=== PATIENT | female | born 1960 | race Caucasian/White ===

== ENCOUNTER 2016-05-08 20:40 | Emergency (ER) | payer OTHER ==
[2016-05-08] MEDS ORDERED: LABETALOL IV ONE ×2 (21:17→22:27)
[2016-05-08] MEDS ORDERED: MORPHINE IV ONE (21:17)
[2016-05-08] MEDS ORDERED: ZOFRAN IV ONE (21:17)
--- NOTE | 2016-05-08 21:27 | PROVIDER DOCUMENTATION ---
HPI-Abdominal Pain/GI Problem <Mirta Yarbrough - Last Filed: 05/08/16 22:24> - General Source: patient - History of Present Illness-ABD Nature of Presenting Problems: Pt is a 56 yof who presents to ER with CC of N/V since 129 today. Pt reports that she is now experiencing generalized abdominal pain that radiates to her back, and pt reports that she thinks that it is from vomiting so much. Pt reports one emesis being green in color and denies ingesting anything green. Pt also reports subjective fever/chills. Abdominal Pain Onset Location: reports: generalized abdomen Pain Radiation: reports: back Quality of Pain: reports: aching Severity in ED: reports: moderate Onset/Duration: reports: this morning (129) Timing: reports: still present, intermittent Activities at Onset: reports: rest Associated Symptoms: reports: anxiety, back/neck pain, cough, fever/chills, loss of appetite, nausea, vomiting. denies: arm pain, chest pain, diarrhea, fatigue, genitourinary problems, headaches, heartburn, joint pain, muscle aches , rash, seizure, shortness of breath, pain with inspiration, syncope, weakness, trouble walking Last BM: unsure Dark Stools Present?: reports: none noticed Rectal Bleeding: reports: none Rectal Pain: reports: none Emesis Description: reports: other (green) <Matthew Hawkins - Last Filed: 05/08/16 23:14> - General Chief Complaint: Nausea/Vomiting Stated Complaint: HIGH BP Time Seen by Provider: 05/08/16 21:05 Allergies/Adverse Reactions: Patient Allergies Allergy/AdvReac Type Severity Reaction Status Date / Time codeine Allergy RASH Verified 05/08/16 21:01 meperidine HCl * Allergy RASH Verified 05/08/16 21:01 [From Demerol] Penicillins Allergy ANAPHYLAXIS Verified 05/08/16 21:01 Home Medications: Home Medication List Medication Instructions Recorded Confirmed Last Taken Type Biotin 5 mg PO DAILY 03/19/14 05/08/16 10/06/15 10:00 History Diazepam 5 mg PO BID 03/19/14 05/08/16 10/06/15 10:00 History Losartan Potassium 50 mg PO DAILY 03/19/14 05/08/16 10/06/15 10:00 History Trazodone [Desyrel] 50 mg PO QHS 11/15/14 05/08/16 10/05/15 History [facility]-3 Fatty Acids [Fish Oil 1,000 mg PO DAILY #0 capsule 11/19/14 05/08/16 10:00 Rx Concentrate] Omeprazole [Prilosec] 40 mg PO DAILY #0 11/19/14 05/08/16 08/24/15 Rx Aspirin [Ecotrin] 81 mg PO DAILY 10/06/15 05/08/16 10/06/15 10:00 History Fluconazole [Diflucan] 150 mg PO DAILY #1 tablet 10/06/15 05/08/16 Unknown Rx Lovastatin 20 mg PO QHS 10/06/15 05/08/16 10/05/15 History Venlafaxine HCl [Venlafaxine HCl 150 mg PO DAILY 10/06/15 05/08/16 10/06/15 10: 00 History ER] Ondansetron Odt [Zofran 8Mg Odt] 8 mg PO Q8H PRN PRN #20 tablet 05/08/16 Unknown Rx Review of Systems - Adult - REVIEW OF SYSTEMS - ADULT Constitutional: reports: chills, fever. denies: fatique, night sweats Eyes: reports: no symptoms reported Ears, Nose, Mouth & Throat: reports: no symptoms reported Cardiovascular: denies: chest pain, edema, heart murmur, irregular heart rate, orthopnea, palpitations, poor circulation, PND, syncope Respiratory: reports: cough, wheezing. denies: chronic cough, dyspnea on exertion, excessive sputum production, hemoptysis, pleurisy, shortness of breath Gastrointestinal: reports: abdominal pain, nausea, poor appetite, vomiting. denies: hematemesis, constipation, diarrhea, difficulty swallowing, frequent heartburn, rectal bleeding Genitourinary: reports: no symptoms reported Musculoskeletal: reports: no symptoms reported Integumentary: reports: no symptoms reported Neurological: reports: no symptoms reported Psychiatric: reports: no symptoms reported Endocrine: reports: no symptoms reported Hematologic/Lymphatic: reports: no symptoms reported Allergic/Immunologic: reports: no symptoms reported All Other Systems: Reviewed and Negative <Matthew Hawkins - Last Filed: 05/08/16 23:14> Past History - Adult - PAST MEDICAL HISTORY-ADULT Review of Records: reports: Nursing Assessment Review, Medications Reviewed Cardiovascular: reports: HTN, hyperlipidemia Musculoskeletal: reports: arthritis, chronic pain (back) Psychiatric: reports: anxiety, depression Other Conditions: reports: other (histoplasmosis) - PRIOR SURGERIES/PROCEDURES Surgical/Procedure History: reports: hysterectomy, orthopedic (extremity) (L foot ) - IMMUNIZATION STATUS Childhood Immunizations: See Nurse Assessment Flu Vaccine: See Nurse Assessment - FAMILY HISTORY Family History: CAD under 55yo <Matthew Hawkins - Last Filed: 05/08/16 23:14> Physical Exam-General - PHYSICAL EXAM-ADULT Initial Vital Signs Reviewed: Yes - CONSTITUTIONAL General Appearance: appears well, alert, no apparent distress, lethargic. negative: mild distress, moderate distress, severe distress, obese, thin, anxious, slow to respond, obtunded, combative - RESPIRATORY Respiratory: chest non-tender, lungs clear, normal breath sounds. negative: respiratory distress, decreased breath sounds, accessory muscle use, wheezing - CARDIOVASCULAR Cardiovascular: normal peripheral pulses, regular rate, rhythm, other (HTN (188/ 101)). negative: bradycardia, tachycardia - GASTROINTESTINAL (ABDOMEN) Abdominal Exam: normal bowel sounds, soft, tenderness (generalized). negative: non tender, abnormal bowel sounds, distended, guarding, mass - SKIN Integumentary: normal color, normal turgor, warm/dry - NEUROLOGIC Neurologic: grossly normal, no motor/sensory deficits. negative: facial droop, focal weakness, motor weakness, sensory deficit - PSYCHIATRIC Psych/Mental Status: normal mood/affect, normal thought content, normal thought process, oriented x 3 <Matthew Hawkins - Last Filed: 05/08/16 23:14> Progress - PLAN OF CARE/RESULTS Progress/Plan/Lab Results: Vital Signs Temp Pulse Resp BP Pulse Ox 05/08/16 20:48 98.4 F 84 14 180/100 98 codeine Allergy (Verified 05/08/16 21:01) RASH meperidine HCl * [From Demerol] Allergy (Verified 05/08/16 21:01) RASH Penicillins Allergy (Verified 05/08/16 21:01) ANAPHYLAXIS Biotin 5 mg PO DAILY 03/19/14 Diazepam 5 mg PO BID 03/19/14 Losartan Potassium 50 mg PO DAILY 03/19/14 Trazodone [Desyrel] 50 mg PO QHS 11/15/14 [facility]-3 Fatty Acids [Fish Oil Concentrate] 1,000 mg PO DAILY #0 capsule Omeprazole [Prilosec] 40 mg PO DAILY #0 11/19/14 Aspirin [Ecotrin] 81 mg PO DAILY 10/06/15 Fluconazole [Diflucan] 150 mg PO DAILY #1 tablet 10/06/15 Lovastatin 20 mg PO QHS 10/06/15 Venlafaxine HCl [Venlafaxine HCl ER] 150 mg PO DAILY 10/06/15 Dietary Diet NPO Start SunMay 08 2107 I&O 05/07/16 05/08/16 05/09/16 06:59 06:59 06:59 Output Total 20 Balance -20 Laboratory 05/08/16 05/08/16 05/08/16 21:43 21:43 21:43 WBC 10.76 RBC 5.10 Hgb 15.0 Hct 43.4 MCV 85.1 MCH 29.4 MCHC 34.6 RDW Std Deviation 12.7 Plt Count 262 MPV 9.4 Immature Gran % (Auto) 0.2 Neut % (Auto) 75.0 Lymph % (Auto) 17.7 L [place] % (Auto) 6.8 Eos % (Auto) 0.2 Baso % (Auto) 0.1 Immature Gran # (Auto) 0.02 Neut # (Auto) 8.08 H Lymph # (Auto) 1.90 [place] # (Auto) 0.73 H Eos # (Auto) 0.02 Baso # (Auto) 0.01 Sodium 140 Potassium 3.6 Chloride 97 L Carbon Dioxide 25 Anion Gap 18 BUN 12 Creatinine 0.9 Estimated GFR/1.73 m2 > 60 BUN/Creatinine Ratio 13 Glucose 148 H Calculated Osmolality 282 Calcium 10.0 Total Bilirubin 0.21 AST 26 ALT 56 H Alkaline Phosphatase 127 H Total Protein 7.1 Albumin 4.4 Globulin 2.7 Albumin/Globulin Ratio 1.6 Amylase 180 Lipase 178 H Urine Source CLEAN CATCH Urine Color YELLOW Urine Turbidity HAZY Urine pH 7.5 Ur Specific [place] 1.021 Urine Protein 50 A Ur Glucose (Stick) NEGATIVE Ur Ketones (Stick) NEGATIVE Urine Blood MODERATE A Urine Nitrite NEGATIVE Urine Bilirubin NEGATIVE Urobilinogen Dipstick NORMAL Urine Leukocytes NEGATIVE Urine WBC (Auto) <10 Urine RBC (Auto) TNTC A U Epithel Cells (Auto) <10 Urine Bacteria (Auto) NEGATIVE Orders Category Date Time Status Saline Loc DIRECTED Care 05/08/16 21:08 Active NPO Diet 05/08/16 21:08 Active AMYLASE [CHEM] Stat Lab 05/08/16 21:43 Completed CBC WITH ELECTRONIC DIFF [HEME] Stat Lab 05/08/16 21:43 Completed COMPREHENSIVE METABOLIC PANEL [CHEM] Stat Lab 05/08/16 21:43 Completed LIPASE [CHEM] Stat Lab 05/08/16 21:43 Completed URINALYSIS W/POSS RFLX CULT [URINALYSIS] Stat Lab 05/08/16 21:43 Completed 0.9% Sodium Chloride Inj [Ns] 1,000 ml Med 05/08/16 22:24 Active IV 999 mls/hr Labetalol Med 05/08/16 21:17 Discontinued 10 mg IV NOW ONE Morphine Med 05/08/16 21:17 Discontinued 2 mg IV NOW ONE Ondansetron [Zofran] Med 05/08/16 21:17 Discontinued 4 mg IV NOW ONE <Mirta Yarbrough - Last Filed: 05/08/16 22:24> - PLAN OF CARE/RESULTS Progress/Plan/Lab Results: Vital Signs - 24 hr 05/08/16 20:48 Temperature 98.4 F Pulse Rate 84 Respiratory 14 Rate Blood Pressure 180/100 O2 Sat by Pulse 98 Oximetry Orders Category Date Time Status Saline Loc DIRECTED Care 05/08/16 21:08 Active NPO Diet 05/08/16 21:08 Active AMYLASE [CHEM] Stat Lab 05/08/16 21:43 Completed CBC WITH ELECTRONIC DIFF [HEME] Stat Lab 05/08/16 21:43 Completed COMPREHENSIVE METABOLIC PANEL [CHEM] Stat Lab 05/08/16 21:43 Completed LIPASE [CHEM] Stat Lab 05/08/16 21:43 Completed URINALYSIS W/POSS RFLX CULT [URINALYSIS] Stat Lab 05/08/16 21:43 Completed 0.9% Sodium Chloride Inj [Ns] 1,000 ml Med 05/08/16 22:24 Active IV 999 mls/hr Labetalol Med 05/08/16 21:17 Discontinued 10 mg IV NOW ONE Labetalol Med 05/08/16 22:27 Discontinued 10 mg IV NOW ONE Morphine Med 05/08/16 21:17 Discontinued 2 mg IV NOW ONE Ondansetron [Zofran] Med 05/08/16 21:17 Discontinued 4 mg IV NOW ONE Laboratory Tests 05/08/16 05/08/16 05/08/16 21:43 21:43 21:43 WBC 10.76 RBC 5.10 Hgb 15.0 Hct 43.4 MCV 85.1 MCH 29.4 MCHC 34.6 RDW Std Deviation 12.7 Plt Count 262 MPV 9.4 Immature Gran % (Auto) 0.2 Neut % (Auto) 75.0 Lymph % (Auto) 17.7 L [place] % (Auto) 6.8 Eos % (Auto) 0.2 Baso % (Auto) 0.1 Immature Gran # (Auto) 0.02 Neut # (Auto) 8.08 H Lymph # (Auto) 1.90 [place] # (Auto) 0.73 H Eos # (Auto) 0.02 Baso # (Auto) 0.01 Sodium 140 Potassium 3.6 Chloride 97 L Carbon Dioxide 25 Anion Gap 18 BUN 12 Creatinine 0.9 Estimated GFR/1.73 m2 > 60 BUN/Creatinine Ratio 13 Glucose 148 H Calculated Osmolality 282 Calcium 10.0 Total Bilirubin 0.21 AST 26 ALT 56 H Alkaline Phosphatase 127 H Total Protein 7.1 Albumin 4.4 Globulin 2.7 Albumin/Globulin Ratio 1.6 Amylase 180 Lipase 178 H Urine Source CLEAN CATCH Urine Color YELLOW Urine Turbidity HAZY Urine pH 7.5 Ur Specific [place] 1.021 Urine Protein 50 A Ur Glucose (Stick) NEGATIVE Ur Ketones (Stick) NEGATIVE Urine Blood MODERATE A Urine Nitrite NEGATIVE Urine Bilirubin NEGATIVE Urobilinogen Dipstick NORMAL Urine Leukocytes NEGATIVE Urine WBC (Auto) <10 Urine RBC (Auto) TNTC A U Epithel Cells (Auto) <10 Urine Bacteria (Auto) NEGATIVE <Matthew Hawkins - Last Filed: 05/08/16 23:14> Departure - Departure Time of Disposition Order: 22:26 Certified Medical Emergency: Emergent <Mirta Yarbrough - Last Filed: 05/08/16 22:24> - Departure Time of Disposition Order: 23:14 Certified Medical Emergency: Emergent <Matthew Hawkins - Last Filed: 05/08/16 23:14> - Departure DIAGNOSIS: Pancreatitis Qualifiers: Chronicity: acute Pancreatitis type: unspecified pancreatitis type Acute pancreatitis complication: no infection or necrosis Qualified Code(s): K85.90 - Acute pancreatitis without necrosis or infection, unspecified HTN (hypertension) Qualifiers: Hypertension type: essential hypertension Qualified Code(s): I10 - Essential ( primary) hypertension Disposition: HOME 01 Condition: Stable Additional Instructions: Clear liquid diet for the next week. No fatty foods Follow up with a GI physician ED Follow Up Instructions: You have been treated by a care provider in the Emergency Department. These instructions are being provided to you so you can have an understanding of how to care for yourself upon discharge. Upon discharge from the Emergency Department, you are responsible for making arrangements for follow-up care by a physician of your choice. Take all prescribed medications as directed. Return to the Emergency Department immediately for any new or worsening symptoms. You may call the Physician Referral phone number at [phone] to obtain a list of Physicians who are taking new patients. Prescriptions: Ondansetron Odt [Zofran 8Mg Odt] 8 mg PO Q8H PRN PRN #20 tablet PRN Reason: Nausea Referrals: Jesús Forde MD [Primary Care Provider] - Aurelio Palumbo MD [STAFF PHYSICIAN] - Instructions: Hypertension, [id number], Acute Pancreatitis Attestation - Physician/ TAHIRA Attestation Patient care was provided by Advanced Practice Provider:: Yes Advanced Practice Provider:: Mirta Yarbrough Advanced Practice Provider documentation review:: The Mid-level provider documentation, treatment plan and medical decision making was reviewed by the physician who agrees with all treatment and medical decision making by the P. <Mirta Yarbrough - Last Filed: 05/08/16 22:24> - Scribe Verification/Attestation Scribe:: Matthew Hawkins Acting as Scribe for:: Mirta Yarbrough Scribe documention review:: This chart was documented by a scribe and accurately reflects the service the provider performed and the decisions made by the provider. <Matthew Hawkins - Last Filed: 05/08/16 23:14> Physician Attestation
[2016-05-08 21:53] LABS: MANUAL DIFF NEEDED? NO; URINE CULTURE NEEDED? NO; URINE MICRO REVIEW NEEDED? NO; URINE SOURCE CLEAN CATCH
[2016-05-08 21:56] LABS: BASO% 0.1 % (0.0-0.8); EOS# 0.02 X1000 (0.0-0.7); EOS% 0.2 % (0.0-10.0); HEMATOCRIT 43.4 % (37.0-47.0); IMM GRAN# 0.02 X1000 (0.0-0.04); IMM GRAN% 0.2 % (0.0-0.5); LYMPH% 17.7 % (20.5-51.1); MCH 29.4 PG (27-31); MCHC 34.6 g/dL (33-37); MCV 85.1 FL (81-99); MONO# 0.73 X1000 (0.11-0.59); MONO% 6.8 % (1.7-9.3); MPV 9.4 FL (7.4-10.4); PLT 262 X1000 (130-400)
[2016-05-08 22:20] LABS: BILIRUBIN URINE NEGATIVE (NEGATIVE); BLOOD URINE MODERATE (NEGATIVE); COLOR YELLOW; GLUCOSE URINE NEGATIVE (NEGATIVE); LEUKOCYTES URINE NEGATIVE (NEGATIVE); NITRITE URINE NEGATIVE (NEGATIVE); PH URINE 7.5; PROTEIN URINE 50 mg/dL (NEGATIVE); SP GRAVITY URINE 1.021; TURBIDITY URINE HAZY (CLEAR); UROBILINOGEN URINE NORMAL (NORMAL)
[2016-05-08 22:21] LABS: AGAP 18; ALBUMIN 4.4 g/dL (3.5-5.0); ALKALINE PHOSPHATASE 127 U/L (32-104); AMYLASE 180 U/L (20-200); BUN 12 mg/dL (8-22); CHLORIDE 97 mmol/L (98-107); COSMO 282; GOT 26 U/L (10-30); GPT 56 U/L (10-36); LIPASE 178 U/L (13-60); POTASSIUM 3.6 mmol/L (3.5-5.1); SODIUM 140 mmol/L (136-145); TCO2 25 mmol/L (25-35); TOTAL BILIRUBIN 0.21 mg/dL (0.20-1.00); TOTAL PROTEIN 7.1 g/dL (6.3-8.3)
[2016-05-08 22:22] LABS: UR EPITHELIAL CELLS <10 /HPF (<10); URINE BACTERIA NEGATIVE /HPF; URINE RBC TNTC /HPF (<10); URINE WBC <10 /HPF (<10)
[2016-05-08] MEDS ORDERED: NS 1,000 ML IV ONE (22:24)
[2016-05-09 00:05] VITALS: BP 177/115
== END 2016-05-09 00:39 | disposition home or self-care (01) ==
LOC: ED 20:40
DX: K85.90 Acute pancreatitis without necrosis or infection, unspecified (principal); I10 Essential (primary) hypertension; R11.2 Nausea with vomiting, unspecified; R10.84 Generalized abdominal pain; M54.9 Dorsalgia, unspecified; R05 Cough; R50.9 Fever, unspecified; R06.2 Wheezing; Z79.899 Other long term (current) drug therapy; R53.83 Other fatigue; R10.817 Generalized abdominal tenderness; E78.5 Hyperlipidemia, unspecified; M19.90 Unspecified osteoarthritis, unspecified site; G89.29 Other chronic pain; F41.9 Anxiety disorder, unspecified; F32.9 Major depressive disorder, single episode, unspecified; Z79.82 Long term (current) use of aspirin
CPT/HCPCS: 80053; 81001; 82150; 83690; 85025; J2405; J7030

== ENCOUNTER 2019-05-14 15:50 | Inpatient (IN) ==
[2019-05-14 16:35] LABS: BASO# 0.01 X1000 (0.0-0.2); BASO% 0.1 % (0.0-0.8); EOS# 0.18 X1000 (0.0-0.7); EOS% 2.5 % (0.0-10.0); HEMATOCRIT 41.5 % (37.0-47.0); HEMOGLOBIN 13.2 g/dL (12.0-16.0); IMM GRAN# 0.02 X1000 (0.0-0.04); IMM GRAN% 0.3 % (0.0-0.5); LYMPH# 3.17 X1000 (1.2-3.4); LYMPH% 44.6 % (20.5-51.1); MCHC 31.8 g/dL (33-37); MCV 84.9 FL (81-99); MONO# 0.49 X1000 (0.11-0.59); MONO% 6.9 % (1.7-9.3); MPV 10.3 FL (7.4-10.4); NEUT# 3.24 X1000 (1.4-6.5); NEUT% 45.6 % (42.2-75.2); PLT 179 X1000 (130-400); RBC 4.89 XMIL (4.2-5.4); RDW 13.4 % (11.5-14.5); WBC 7.11 X1000 (4.8-10.8)
[2019-05-14 16:51] LABS: INR 0.86; PROTIME 12.1 Seconds (11.0-16.0)
[2019-05-14 16:55] LABS: PTT < 20.0 Seconds (22.3-41.8)
[2019-05-14 16:58] LABS: AGAP 14; ALBUMIN 4.6 g/dL (3.5-5.0); ALKALINE PHOSPHATASE 121 U/L (32-104); BUN 16 mg/dL (8-22); CALCIUM 9.4 mg/dL (8.8-10.2); CHLORIDE 104 mmol/L (98-107); COSMO 288; CREATININE 0.8 mg/dL (0.5-0.9); ESTIMATED GFR > 60; GLUCOSE 100 mg/dL (70-104); GOT 29 U/L (10-30); GPT 39 U/L (10-36); POTASSIUM 3.9 mmol/L (3.5-5.1); SODIUM 144 mmol/L (136-145); TCO2 26 mmol/L (25-35); TOTAL PROTEIN 6.9 g/dL (6.3-8.3)
--- NOTE | 2019-05-14 17:09 | Diag Imaging Result Doc PS360 ---
EXAM: CT HEAD W/O CONTRAST HISTORY: stroke like symptoms TECHNIQUE: Images were obtained from the skull base to vertex without IV contrast as per standard protocol. This exam was performed using automated exposure control, adjustment of mA or kV according to patient size, and/or use of iterative reconstruction technique. COMPARISON: 08/26/2015 FINDINGS: Mild cerebral atrophy. No acute hemorrhage. No midline shift or mass effect. Stable posterior fossa arachnoid cyst versus negative cisterna magna. Mild microvascular disease. Paranasal sinuses and mastoid air cells are clear. IMPRESSION: Stable exam. No acute intracranial abnormality is appreciated. Electronically signed by Joan Kamara 05/14/2019 5:06 PM
--- NOTE | 2019-05-14 17:23 | Diag Imaging Result Doc PS360 ---
EXAM: CHEST-PORTABLE INDICATION: stroke like symptoms TECHNIQUE: One view COMPARISON: 10/29/2018 FINDINGS: There is evidence of prior granulomatous disease, stable. The lungs are grossly clear. There is no discrete pleural fluid collection or pneumothorax. The cardiomediastinal silhouette and central vasculature are grossly unremarkable. IMPRESSION: No evidence of acute pathology by plain radiograph. Electronically signed by Alex Dukes 05/14/2019 5:21 PM
[2019-05-14] MEDS ORDERED: APRESOLINE IV ONE ×2 (17:36→18:33)
[2019-05-14] MEDS ORDERED: ASPIRIN PO ONE (17:37)
--- NOTE | 2019-05-14 17:40 | PROVIDER DOCUMENTATION ---
This chart was entered by Rohini Roque Scribe, acting as scribe for Luis Saldana MD. HPI-Neurological Disorder - General Chief Complaint: Altered Mental Status Stated Complaint: AMS Time Seen by Provider: 05/14/19 15:59 Source: patient Allergies/Adverse Reactions: Patient Allergies Allergy/AdvReac Type Severity Reaction Status Date / Time codeine Allergy RASH Verified 10/17/18 15:57 meperidine HCl * Allergy RASH Verified 10/17/18 15:57 [From Demerol] Penicillins Allergy ANAPHYLAXIS Verified 10/17/18 15:57 Home Medications: Home Medication List Medication Instructions Recorded Confirmed Last Taken Type Unobtainable [Home Meds 05/14/19 05/14/19 Unknown History Unobtainable] - History of Present Illness-Neuro Nature of Presenting Problem: 59 yowf presents to the ed via pov and was found walking around in the ed. when a nurse approach the pt she was having difficulty with her speech and was confused. pt on exam has improved and still having brief episodes of aphasia but has no other sx. pt denies any pain or injury. pt sts she drove herself to the ed because her mother was worried she was having a stroke. pt has hx of HTN. pt sts onset of sx was approximately 1100. pt sts sometime after breakfast and before lunch. pt sts she had slurring of speech this am but that has improved Headache Location: reports: frontal Severity: reports: moderate Onset/Duration: reports: this morning Timing: reports: still present, constant Context: reports: impaired speech Character of Altered Mental Status: reports: confused Any recent trauma/injury?: reports: none Character of Deficits: reports: impaired speech New weakness or altered sensation location:: reports: none Cognitive Baseline: alert, oriented x3 Gait Baseline: walks without assistance Associated Symptoms: reports: headache, confusion, slurred speech. denies: dizziness, chest pain, fever/chills, seizures, vision changes Similar Symptoms Previously?: No Recently seen or treated by another doctor?: No Review of Systems - Adult - REVIEW OF SYSTEMS - ADULT Constitutional: denies: chills, fever Eyes: reports: no symptoms reported Ears, Nose, Mouth & Throat: reports: no symptoms reported Cardiovascular: denies: chest pain, palpitations Respiratory: denies: cough, shortness of breath, wheezing Gastrointestinal: denies: abdominal pain, diarrhea, nausea, vomiting Genitourinary: reports: no symptoms reported Musculoskeletal: denies: back pain, neck pain Integumentary: reports: no symptoms reported Neurological: reports: see HPI, headache/migraines, slurred speech, other (aphasia). denies: loss of balance Psychiatric: reports: no symptoms reported Endocrine: reports: no symptoms reported Hematologic/Lymphatic: reports: no symptoms reported Allergic/Immunologic: reports: no symptoms reported All Other Systems: Reviewed and Negative Past History - Adult - PAST MEDICAL HISTORY-ADULT Review of Records: reports: Old Records Reviewed, Nursing Assessment Review, Medications Reviewed, Social history reviewed & non-contributory. Major Childhood Illnesses: reports: denies history Cardiovascular: reports: HTN, hyperlipidemia Respiratory: reports: denies history Gastrointestinal: reports: denies history Obstetrical/Gynecological: reports: denies history Genitourinary: reports: kidney stones Musculoskeletal: reports: arthritis, chronic pain (back) Neurological: reports: denies history Psychiatric: reports: anxiety, depression Endocrine/Immune: reports: denies history Other Conditions: reports: other (histoplasmosis) - PRIOR SURGERIES/PROCEDURES Surgical/Procedure History: reports: cholecystectomy, hysterectomy, orthopedic (extremity) (L foot ), other (mamoplasty) - IMMUNIZATION STATUS Childhood Immunizations: See Nurse Assessment Flu Vaccine: See Nurse Assessment - FAMILY HISTORY Family History: CAD under 55yo, other ([place]) - SOCIAL HISTORY Smoking: denies Substance Use: denies Living Situation: family Physical Exam- Neurological - Physical Exam-Neuro Initial Vital Signs Reviewed: Yes (noted BP-[id number]) General Appearance: appears well, alert, no apparent distress, obese Eye Exam: bilateral eye: normal inspection, PERRL, EOMI HENMT: normocephalic/atraumatic, moist mucous membranes, normal ENT inspection Head Injury: no evidence of injury Neck: non-tender, full range of motion, supple, normal inspection Respiratory: chest non-tender, lungs clear, normal breath sounds Cardiovascular: normal peripheral pulses, regular rate, rhythm Abdominal Exam: normal bowel sounds, non tender, soft Lymphatic: no adenopathy Extremity: normal range of motion, non-tender, normal gait, normal inspection transportation associate Exam: normal hearing, PERRL, abnormal speech. negative: facial droop Coordination/Gait: normal finger to nose, normal gait Motor/Sensory: no motor deficit, no sensory deficit, no pronator drift Neurologic: aphasia. negative: facial droop, focal weakness, motor weakness, sensory deficit Integumentary: normal color, normal turgor, warm/dry Psych/Mental Status: normal mood/affect, oriented x 3 - Glascow Coma Scale Best Eye Response: (4) open spontaneously Best Verbal Response: (4) confused conversation (due to aphasia) Best Motor Response: (6) obeys commands Total Glascow Score: 14 Progress - PLAN OF CARE/RESULTS Progress/Plan/Lab Results: Vital Signs - 8 hr 05/14/19 15:54 Temperature 98.1 F Pulse Rate 84 Respiratory Rate 18 Blood Pressure 173/117 O2 Sat by Pulse Oximetry 94 L Laboratory Results - last 24 hr 05/14/19 05/14/19 05/14/19 16:08 16:16 16:16 WBC RBC Hgb Hct MCV MCH MCHC RDW Std Deviation Plt Count MPV Immature Gran % (Auto) Neut % (Auto) Lymph % (Auto) [place] % (Auto) Eos % (Auto) Baso % (Auto) Immature Gran # (Auto) Neut # (Auto) Lymph # (Auto) [place] # (Auto) Eos # (Auto) Baso # (Auto) PT INR PTT (Actin FS) Sodium 144 Potassium 3.9 Chloride 104 Carbon Dioxide 26 Anion Gap 14 BUN 16 Creatinine 0.8 Estimated GFR/1.73 m2 > 60 BUN/Creatinine Ratio 20 Glucose 100 POC Glucose 86 Calculated Osmolality 288 Calcium 9.4 Total Bilirubin 0.20 AST 29 ALT 39 H Alkaline Phosphatase 121 H Troponin T High Sens < 6 Total Protein 6.9 Albumin 4.6 Globulin 2.0 Albumin/Globulin Ratio 2.0 05/14/19 05/14/19 16:16 16:16 WBC 7.11 RBC 4.89 Hgb 13.2 Hct 41.5 MCV 84.9 MCH 27.0 MCHC 31.8 L RDW Std Deviation 13.4 Plt Count 179 MPV 10.3 Immature Gran % (Auto) 0.3 Neut % (Auto) 45.6 Lymph % (Auto) 44.6 [place] % (Auto) 6.9 Eos % (Auto) 2.5 Baso % (Auto) 0.1 Immature Gran # (Auto) 0.02 Neut # (Auto) 3.24 Lymph # (Auto) 3.17 [place] # (Auto) 0.49 Eos # (Auto) 0.18 Baso # (Auto) 0.01 PT 12.1 INR 0.86 PTT (Actin FS) < 20.0 L Sodium Potassium Chloride Carbon Dioxide Anion Gap BUN Creatinine Estimated GFR/1.73 m2 BUN/Creatinine Ratio Glucose POC Glucose Calculated Osmolality Calcium Total Bilirubin AST ALT Alkaline Phosphatase Troponin T High Sens Total Protein Albumin Globulin Albumin/Globulin Ratio Orders Category Date Time Status Cardiac Monitoring DIRECTED Care 05/14/19 16:14 Active Finger Stick Blood Sugar (ED) DIRECTED Care 05/14/19 16:14 Active Oxygen Therapy- ED Nursing DIRECTED Care 05/14/19 16:14 Active Saline Loc NOW Care 05/14/19 16:14 Active CHEST-PORTABLE [RAD] Stat Exams 05/14/19 16:[address] HEAD W/O CONTRAST [CT] Stat Exams 05/14/19 16:14 Completed CBC WITH ELECTRONIC DIFF [HEME] Stat Lab 05/14/19 16:16 Completed COMPREHENSIVE METABOLIC PANEL [CHEM] Stat Lab 05/14/19 16:16 Completed PROTIME WITH INR [COAG] Stat Lab 05/14/19 16:16 Completed PTT [COAG] Stat Lab 05/14/19 16:16 Completed TROPONIN T HIGH SENSITIVITY Stat Lab 05/14/19 16:16 Completed URINALYSIS W/POSS RFLX CULT [URINALYSIS] Stat Lab 05/14/19 16:14 Uncollected URINE DRUG SCREEN Stat Lab 05/14/19 16:14 Uncollected 0.9% Sodium Chloride Inj [Ns] 1,000 ml Med 05/14/19 16:14 Active IV 125 mls/hr Aspirin Med 05/14/19 17:37 Discontinued 325 mg PO NOW ONE Hydralazine [Apresoline] Med 05/14/19 17:36 Discontinued 10 mg IV NOW ONE EKG [EKG] Stat Ther 05/14/19 16:14 Ordered At recheck, pts neuro symptoms have resolved completely. Result Diagrams: 05/14/19 16:16 05/14/19 16:16 - REASSESSMENT Reassessment #1 Time Reassessed: 17:01 Status: improving (pt is resting in bed) - EKG 1 Time of EKG reading by physician:: 17:14 EKG Read and Signed by:: Luis Saldana EKG Interpretation (*Must complete 3 of following elements*): Normal Rate: 81 Rhythm: nsr [place]: normal QRS: normal IA Interval: normal ST Wave: normal - XRAY 1 XRAY: Bilateral XRAY Study: Chest Impression: See EMR Report (EXAM: CHEST-PORTABLE INDICATION: stroke like symptoms TECHNIQUE: One view COMPARISON: 10/29/2018 FINDINGS: There is evidence of prior granulomatous disease, stable. The lungs are grossly clear. There is no discrete pleural fluid collection or pneumothorax. The cardiomediastinal silhouette and central vasculature are grossly unremarkable. IMPRESSION: No evidence of acute pathology by plain radiograph. Electronically signed by Alex Dukes 05/14/2019 5:21 PM 05/14/19 1721 Interpreting Physician: Alex Dukes MD Dictated Date/Time: 05/14/19 1720 cc: Luis Saldana MD; None,PCP) - CT/MRI 1 CT Study: Head Impression: See EMR Report (EXAM: CT HEAD W/O CONTRAST HISTORY: stroke like symptoms TECHNIQUE: Images were obtained from the skull base to vertex without IV contrast as per standard protocol. This exam was performed using automated exposure control, adjustment of mA or kV according to patient size, and/or use of iterative reconstruction technique. COMPARISON: 08/26/2015 FINDINGS: Mild cerebral atrophy. No acute hemorrhage. No midline shift or mass effect. Stable posterior fossa arachnoid cyst versus negative cisterna magna. Mild microvascular disease. Paranasal sinuses and mastoid air cells are clear. IMPRESSION: Stable exam. No acute intracranial abnormality is appreciated. Electronically signed by Joan Kamara 05/14/2019 5:06 PM 05/14/19 1706 Interpreting Physician: Joan Kamara MD Dictated Date/Time: 05/14/19 1704 cc: Luis Saldana MD; None,PCP) - CONSULTS/PCP/HOSPITALIST Notification #1 *Consult/PCP/Hospitalist*: Anushka Martínez for Hospitalist Time Discussed: 17:38 Consult Disposition: Will see in ED, Admit Departure - Departure Date of Disposition Decision: 05/14/19 Time of Disposition Decision: 17:39 DIAGNOSIS: TIA (transient ischemic attack), HTN (hypertension) Disposition: ADMITTED INPATIENT 09 Certified Medical Emergency: Emergent Condition: Fair Referrals and Follow-Ups: None,PCP [Primary Care Provider] - - Critical Care Note This patient required my direct & personal management of CC.: No Attestation - Physician/ TAHIRA Attestation Patient care was provided by Advanced Practice Provider:: No The physician spent face to face time with patient:: Yes Advanced Practice Provider documentation review:: Supervising physician onsite and consulted in the evaluation and care of this patient. The physician did have a face to face encounter with the patient. - NIH Stroke Scale NIH Type: Initial Evaluation Level of Consciousness: 0-Alert LOC Questions (ask month and age): 0-Answers Both Correctly LOC Commands (ask to open & close eyes;make a fist, let go): 0-Obeys Both Correctly Best Gaze (horizontal eye movement): 0-Normal Visual (use finger movement, counting or visual threat): 0-No Visual Loss Facial Palsy (show teeth or raise eyebrows & close eyes tght: 0-Symmetrical Movement Motor Function-left arm: 0-Normal Motor Function-right arm: 0-Normal Motor Function-left le-Normal Motor Function-right le-Normal Limb Ataxia(lnlxoo-tfii-dodmqu, or heel to romero): 0-No Ataxia Sensory(pin prick to face,arms,trunk,legs-compare side/side): 0-No Ataxia Best Language(name item/read sentence.Ex-[place] to [place]): 1-Mild to Moderate Aphasia Dysarthria(Pt read words or say words Ex.Mama,Tip-Top,Thanks: 1-Mild-Mod Slurring Words Extinction and Inattention: 0-Normal NIH Total Score: 2 Stroke tPA Guidelines - Inclusion Criteria for IV tPA 18 years old or older: Yes Ischemic stroke with measurable deficit: Yes Onset <3 hours ago *OR* 3-4.5 hours ago: No (at recheck, pts symptoms have completely resolved.) This chart was documented by the indicated scribe, (Rohini Roque Scribe) and accurately reflects the services I performed and decisions made by me, Luis Saldana MD, as attested by the provider's signature.
[2019-05-14] MEDS: NS 1,000 ML IV PRN (17:49)
[2019-05-14] MEDS: NIPRIDE 50 MG in D5W 250 ML IV SCH ×4 (20:40→21:54)
--- NOTE | 2019-05-14 20:40 | HISTORY AND PHYSICAL ---
CHIEF COMPLAINT: Altered mental status and difficulty with speech. HISTORY OF PRESENT ILLNESS: This is a 59-year-old female, with a history of hypertension and chronic kidney disease, who presented to the emergency room by private vehicle today complaining of difficulty speaking. At the time of my exam, the patient is alert and oriented. She has no trouble with speaking. No trouble finding her words. Ms. Longoria states that she was out shopping with her mother. She tried to tell her mother something about a piece of clothing, and she realized that she could not make the words come out, and she stated that the speech sounded like just sounds. Her mother became worried and kept on asking the patient to come to the emergency room. She stated she finished shopping. She was able to pay, had no difficulty. She drove her mother home and drove herself to the emergency room. She does state she has had a frontal headache that started up early in the morning. It was behind her left eye. She denies any change in vision. PAST MEDICAL HISTORY: 1. Hypertension. 2. Chronic back pain. 3. Hyperlipidemia. 4. Kidney stones. 5. Histoplasmosis. PAST SURGICAL HISTORY: 1. Cholecystectomy. 2. Hysterectomy. 3. Left foot surgery. SOCIAL HISTORY: She lives with family members. She denies any alcohol, tobacco, or illicit drug use. ALLERGIES: Codeine and Demerol, which cause a rash. Penicillin causes anaphylaxis. HOME MEDICATIONS: 1. Oxybutynin. 2. Omeprazole. REVIEW OF SYSTEMS: Discussed with patient with pertinent positives as stated in the HPI. She denied any syncope, dizziness, chest pain, palpitations, any shortness of breath, cough, fever, chills, night sweats, any nausea, vomiting, diarrhea, constipation, black or bloody vomitus or stools, hematuria, dysuria, frequency, urgency. PHYSICAL EXAMINATION: GENERAL: This is a 59-year-old female who is sitting up in the bed in the emergency room in no distress. VITAL SIGNS: Blood pressure is 199/137, heart rate is 86, respirations are 18, temperature is 98.1 degrees, with room air saturations 94 to 99 percent. EYES: Pupils are equal, round, react to light. EOMs are intact. Sclerae are anicteric. HEAD: Head is normocephalic, atraumatic. ENT: Mucous membranes are moist. NECK: Supple with trachea midline. No JVD. CARDIOVASCULAR: Regular rate and rhythm. S1 and S2 appreciated. No murmur. She denies any calf tenderness. Bilateral peripheral pulses palpable x4 extremities. PULMONARY: Breath sounds are clear. No increased work of breathing noted. Chest rises and falls symmetrically with respiration. Chest wall is nontender to palpation. GASTROINTESTINAL: Abdomen is soft, nontender, nondistended with bowel sounds in all 4 quadrants. GENITOURINARY: No CVA or suprapubic tenderness. NEUROLOGIC: She is alert and oriented x3. Forehead is spared. She has no facial droop. No tongue or uvula deviation. Speech is clear. Equal shoulder shrug. No plantar drift. Chief Gauger are equal. Xjekvs-iq-vwpm is 3/3 bilateral, knee to ankle is 3/3 bilateral. LABS: WBC is 7.1 with hemoglobin 13.2, hematocrit 41.5, and platelets 179,000. INR is 0.86. Sodium 144, potassium 3.9, BUN 16, creatinine 0.8, with a glucose of 100. CT of the head revealed stable exam. No acute hemorrhage. No midline shift or mass effect. Stable posterior fossa arachnoid cyst versus negative cisterna magna when compared to CT from August 2015. Chest x-ray revealed no evidence of acute pathology by plain radiograph. ASSESSMENT: 1. Transient ischemic attack. 2. Melena. 3. Hypertension. 4. History of hypertension, on no home medications. 5. Known posterior fossa arachnoid cyst versus negative cisterna magna, that is stable to August 2015 CT. PLAN: 1. The patient will be admitted and transferred to [facility]. 2. Nipride per protocol. 3. Zofran p.r.n. for nausea. 4. Check CBC, CMP, magnesium, TSH, and vitamin B12 in the morning. 5. Urine drug screen and urinalysis. 6. Neurologic checks q.4 hours x24 hours. Patient was examined with Dr. Nuñez and plan was discussed. Further treatments pending hospital course. Dictated by ELVIN Garcia for Marquis Nuñez MD cc: ELVIN Garcia MD [facility]
[2019-05-14 21:04] LABS: URINE SOURCE CATH
[2019-05-14 21:13] LABS: BILIRUBIN URINE NEGATIVE (NEGATIVE); BLOOD URINE MODERATE (NEGATIVE); COLOR YELLOW; GLUCOSE URINE NEGATIVE (NEGATIVE); KETONE URINE 10 mg/dL (NEGATIVE); LEUKOCYTES URINE MODERATE (NEGATIVE); NITRITE URINE NEGATIVE (NEGATIVE); PH URINE 7.5; PROTEIN URINE 50 mg/dL (NEGATIVE); SP GRAVITY URINE 1.019; TURBIDITY URINE CLEAR (CLEAR); UROBILINOGEN URINE NORMAL (NORMAL)
[2019-05-14 21:16] LABS: UR EPITHELIAL CELLS >10 /HPF (<10); URINE BACTERIA 1+ /HPF; URINE RBC TNTC /HPF (<10); URINE WBC <10 /HPF (<10)
[2019-05-14 21:28] LABS: UR AMPHETAMINES QUAL NONE DETECTED (NONE DETECT); UR BARBITUATES QUAL NONE DETECTED (NONE DETECT); UR BENZODIAZEPIN QUAL PRESUMPTIVE POSITIVE (NONE DETECT); UR CANNABINOIDS QUAL PRESUMPTIVE POSITIVE (NONE DETECT); UR COCAINE QUAL NONE DETECTED (NONE DETECT); UR METHADONE QUAL NONE DETECTED (NONE DETECT); UR METHAMPHETAMINE QUAL NONE DETECTED (NONE DETECT); UR OPIATES QUAL NONE DETECTED (NONE DETECT); UR OXYCODONE QUAL NONE DETECTED (NONE DETECT); UR PCP QUAL NONE DETECTED (NONE DETECT); UR PROPOXYPHENE QUAL NONE DETECTED (NONE DETECT); UR TCA QUAL NONE DETECTED (NONE DETECT)
[2019-05-14] MEDS: ZOFRAN IV PRN (22:01)
--- NOTE | 2019-05-14 22:33 | HISTORY AND PHYSICAL ---
HISTORY AND PHYSICAL ADDENDUM: Patient seen and examined by myself. Full note dictated and discussed with nurse practitioner. Patient presented to the hospital. She is a 59-year-old female who was found walking around confused, disoriented. Her blood pressures have been elevated 240/140. We are going to place her on a Nipride drip and we will follow. cc: Marquis Nuñez MD
[2019-05-15] MEDS ORDERED: APRESOLINE IV PRN (00:50)
[2019-05-15] MEDS: APRESOLINE IV PRN ×2 (04:04→08:25)
[2019-05-15] MEDS: TYLENOL PO PRN ×2 (04:04→10:33)
[2019-05-15] MEDS ORDERED: CATAPRES PO PRN (04:23)
[2019-05-15 06:18] LABS: HEMATOCRIT 45.2 % (37.0-47.0); HEMOGLOBIN 14.5 g/dL (12.0-16.0); MCH 26.9 PG (27-31); MCHC 32.1 g/dL (33-37); MCV 83.9 FL (81-99); MPV 9.7 FL (7.4-10.4); RBC 5.39 XMIL (4.2-5.4); RDW 13.7 % (11.5-14.5); WBC 8.46 X1000 (4.8-10.8)
[2019-05-15 07:00] LABS: AGAP 15; ALBUMIN 4.7 g/dL (3.5-5.0); ALKALINE PHOSPHATASE 126 U/L (32-104); BUN 11 mg/dL (8-22); CALCIUM 9.9 mg/dL (8.8-10.2); CHLORIDE 105 mmol/L (98-107); COSMO 293; CREATININE 0.9 mg/dL (0.5-0.9); ESTIMATED GFR > 60; GLUCOSE 153 mg/dL (70-104); GOT 29 U/L (10-30); GPT 40 U/L (10-36); MAGNESIUM 1.8 mg/dL (1.5-2.7); POTASSIUM 3.8 mmol/L (3.5-5.1); SODIUM 146 mmol/L (136-145); TCO2 26 mmol/L (25-35); TOTAL PROTEIN 7.7 g/dL (6.3-8.3)
[2019-05-15] MEDS: NS 1,000 ML IV PRN ×3 (07:05→19:26)
--- NOTE | 2019-05-15 07:41 | EKG Report ---
Test Performed on : 05/14/2019 5:14:08 PM Test Reason : Stroke like symptoms Blood Pressure : / mmHG Vent. Rate : 081 BPM Atrial Rate : 081 BPM P-R Int : 166 ms QRS Dur : 068 ms QT Int : 396 ms P-R-T Axes : 039 005 043 degrees QTc Int : 460 ms Normal sinus rhythm. Normal ECG When compared with ECG of 17-OCT-2018 15:55, No significant change was found Unconfirmed Result
[2019-05-15] MEDS: ZOFRAN IV PRN (09:05)
[2019-05-15] MEDS: COZAAR PO SCH (10:33)
[2019-05-15] MEDS: HYDROCHLOROTHIAZIDE PO SCH (10:33)
[2019-05-15] MEDS ORDERED: SODIUM CHLORIDE 0.9% INJ PRN (11:54)
[2019-05-15] MEDS ORDERED: PHENERGAN IV PRN (11:54)
[2019-05-15] MEDS: APRESOLINE PO SCH ×2 (12:21→21:23)
--- NOTE | 2019-05-16 01:11 | PROGRESS NOTE ---
DATE: 05/15/2019 SUBJECTIVE: Patient denies any current confusion. States that part is better. Denies fevers or chills. PHYSICAL EXAMINATION: Vital Signs: Temperature 98 degrees, pulse 103, respiratory 18, BP 145/82 to 180 to 190 systolic. General: Patient is awake, pleasant. She is in no current distress. HEENT: Normocephalic. Neck: Supple. Cardiovascular: Regular rate. Chest: Clear. Abdomen: Soft. Extremities: Moves all extremities. ASSESSMENT: 1. Hypertensive urgency. Blood pressures have elevated back in the 180s, 200s. We are going to add losartan, hydrochlorothiazide and hydralazine and we will follow. 2. History of melena. We will continue to follow with GI. cc: Marquis Nuñez MD
[2019-05-16] MEDS: NS 1,000 ML IV PRN (03:10)
[2019-05-16] MEDS: APRESOLINE PO SCH (04:55)
[2019-05-16 08:30] VITALS: BP 148/78
[2019-05-16] MEDS: COZAAR PO SCH (10:15)
[2019-05-16] MEDS: HYDROCHLOROTHIAZIDE PO SCH (10:15)
--- NOTE | 2019-05-16 22:27 | DISCHARGE SUMMARY ---
ADMISSION DATE: 05/14/2019 DISCHARGE DATE: 05/16/2019 DIAGNOSES: 1. Transient ischemic attack, resolved. 2. Hypertensive urgency. 3. History of hypertension on no home medications. 4. Melena. 5. Known posterior fossa arachnoid cyst versus negative cisterna magna, stable compared to August 2015. DIAGNOSTICS: 1. Chest x-ray revealed no evidence of acute pathology. 2. CT of the head and stable exam. No intracranial abnormality appreciated. No acute hemorrhage. No midline shift or mass effect. Stable posterior fossa arachnoid cyst versus negative cisterna magna when compared to 08/26/2015 CT scan. HOSPITAL COURSE: Ms. Longoria presented to the emergency room by POV, having difficulty speaking. She stated that she was out shopping with her mother and she noticed that when she talked that her words sounded just like weird sounds. Her mother commented on her words, stating that she needed to be evaluated. The patient stated that they finished shopping. She drove her mother home and drove herself to the emergency room. She stated that she had no other difficulty or deficits other than her speech. She did state that she had a headache that started behind her left eye that morning. At the time of my exam the patient is awake, alert. Speech is clear. She has no deficits. She states her headache is down to /. CT scan as stated above. The patient remained with no recurrence of symptoms. Blood pressures were in the 190s over 120s-130s when she first arrived. She was initially placed on a Nipride drip. This was able to be weaned off and she was transferred to the medical-surgical floor. We added hydralazine, hydrochlorothiazide, and Norvasc with losartan and blood pressures have been in the 140s to 150s over 70s to 80 range. Today at the time of discharge, her headache is gone. She has no deficits. Her speech is clear and thankfully she is ready for discharge. DISCHARGE VITAL SIGNS: Blood pressure is 148/78 with heart rate of 84, respirations 18, temperature 98.9 degrees oral, room air saturations 97%. DISCHARGE PHYSICAL EXAMINATION: Cardiovascular: Regular rate and rhythm. S1, S2 appreciated. She has no lower extremity edema. She denies calf tenderness with peripheral pulses palpable x4 extremities. Pulmonary: Breath sounds clear, no increased work of breathing noted, chest rise and falls symmetric to respiration. Gastrointestinal: Abdomen is soft, nontender, nondistended. Bowel sounds in all 4 quadrants. Neurologic: She is alert and oriented x3. Pupils equal, round, react to light. EOMs are intact. Forehead is spared. No facial droop. Speech is clear. She has no tongue or uvula deviation. Equal shoulder shrug. No plantar drift. Qlvuht-jh-zmpa 3/3 is bilateral. Her gait is steady. DISCHARGE MEDICATIONS: 1. Norvasc 10 mg p.o. daily. 2. Abilify 5 mg p.o. daily. 3. Valium 5 mg p.o. b.i.d. 4. Cymbalta 60 mg p.o. daily. 5. Hydralazine 50 mg p.o. q. 8 hours. 6. Hydrochlorothiazide 25 mg p.o. daily. 7. Losartan 100 mg p.o. daily. 8. Omeprazole 40 mg p.o. daily. 9. Trazodone 50 mg p.o. at bedtime. FOLLOW-UP: Her primary care provider in one week, sooner if needed. She has been instructed to call to be seen sooner or return to the ER for any syncope, dizziness, chest pain, palpitations, temperature greater than 101, shortness of breath, cough, fever, chills, nausea, vomiting, diarrhea, constipation, any black or bloody vomitus or stools, any voiding difficulties, for any change in vision, change in speech, any extremity weakness, or for any questions or concerns that she may have. She is being discharged home in stable condition with family members. TIME SPENT: This is a greater than 30 minute discharge. Dictated by ELVIN Garcia for Marquis Nuñez MD cc: ELVIN Garcia MD
--- NOTE | 2019-05-17 05:42 | DISCHARGE SUMMARY ---
ADMISSION DATE: 05/14/2019 DISCHARGE DATE: 05/16/2019 ADDENDUM: Patient seen and examined by myself. Full note dictated and discussed with nurse practitioner. On discharge, patient is awake, alert, currently in no distress. PHYSICAL EXAMINATION: HEENT: Normocephalic. Neck: Supple. Cardiovascular: Regular rate. Chest: Clear. Abdomen: Soft. Extremities: Moves all extremities. Neurologic: She has no focal neurological changes. She did admit to the hospital with altered mental status and difficulty with her speech although her blood pressures were greater than 200/120 systolic and diastolic. On discharge, blood pressure is much improved at 156/78. SUMMARY: She was admitted, placed on medications, hydroxyzine. She is pleasant. Her memory is back to normal. She is having no other difficulties. She was admitted to the hospital with slurred speech and altered mental status. This has resolved. She currently is awake, alert, oriented. Blood pressures were markedly elevated at 220s/120s. Currently on discharge, blood pressures are much more normal at 156/78. She was started on medications in the hospital. We will continue these as an outpatient. Patient understands the importance of controlling her blood pressure. cc: Marquis Nuñez MD
== END 2019-05-16 12:51 | disposition home or self-care (01) | DRG 305 ==
LOC: 2N 15:50 → P.ED 15:50 → P.MEDSURG 05-15 02:03 → P.EDIPHOLD 05-15 02:03
PROVIDERS: ATTEND Family Medicine